=== PATIENT | male | born 1985 | race Two or more races ===

== ENCOUNTER 2019-07-05 20:02 | Emergency (ER) | payer BC ==
[~2019-07-05] VITALS: Ht 170.2 cm; Wt 77.1 kg
--- NOTE | 2019-07-05 20:14 | NUR ---
ED Nurse Note: pt walked in c/o sorethroat x 3 days and earache x 1 day. Pt is AO x 4 times, VSS, on room air no distress. EUGENIED seen Pt at bedside.
[2019-07-05 20:16] VITALS: BP 123/78
--- NOTE | 2019-07-05 20:21 | Emergency Room Report ---
History of Present Illness General Chief Complaint: Sore Throat Source: Patient Present Illness HPI 34-year-old male with no symptom past medical history of 3 days now radiating to ears. Patient is worse than the right. Denies fever and chills, congestion. Complains of minor dry cough without any phlegm production. Denies history of asthma, chest pain, S OB, palpitation, wheezing. Denies nausea vomiting, abdominal pain, urinary symptoms. Denies recent travel and sick contacts. Allergies: Coded Allergies: No Known Allergies (Unverified , 07/05/19) Patient History Past Medical History: see triage record Past Surgical History: unable to obtain Pertinent Family History: none Immunizations: UTD Reviewed Nursing Documentation: PMH: Agreed; PSxH: Agreed Nursing Documentation-PMH Past Medical History: No Stated History Review of Systems All Other Systems: negative except mentioned in HPI Physical Exam Vital Signs Date Time Temp Pulse Resp B/P (MAP) Pulse Ox O2 Delivery O2 Flow Rate FiO2 07/05/19 20:10 99.3 74 18 128/82 (97) 98 Room Air Sp02 EP Interpretation: reviewed, normal General Appearance: no apparent distress, alert, GCS 15, non-toxic Head: normocephalic, atraumatic Eyes: bilateral eye normal inspection, bilateral eye PERRL ENT: no angioedema, TMs + canals normal, pharyngeal erythema, tonsillar exudate Neck: full range of motion, supple/symm/no masses, other - Anterior cervical lymphadenopathy Respiratory: chest non-tender, lungs clear, normal breath sounds, no wheezing, speaking full sentences Cardiovascular #1: regular rate, rhythm, no edema, no murmur, normal capillary refill Gastrointestinal: normal bowel sounds, non tender, soft, non-distended, no guarding, no rebound Musculoskeletal: back normal, gait/station normal, normal range of motion, non- tender Neurologic: alert, oriented x3, responsive, motor strength/tone normal, sensory intact, speech normal Psychiatric: judgement/insight normal, memory normal, mood/affect normal, no suicidal/homicidal ideation Skin: no rash Lymphatic: adenopathy - Anterior cervical Medical Decision Making PA Attestation Diagnosis and treatment plans were reviewed and discussed with my supervising physician Dr. Melendez Diagnostic Impression: Primary Impression: Tonsillitis with exudate ER Course 34-year-old male with no symptom past medical history of 3 days now radiating to ears. Patient is worse than the right. Denies fever and chills, congestion. Complains of minor dry cough without any phlegm production. Denies history of asthma, chest pain, S OB, palpitation, wheezing. Denies nausea vomiting, abdominal pain, urinary symptoms. Denies recent travel and sick contacts. Ddx considered but are not limited to: strep pharyngitis, URI, tonsilitis, peritonsillar absacess, influneza Vital signs: are WNL, pt. is afebrile H&PE are most consistent with: Tonsillitis with white exudate ORDERS: Amoxicillin, ibuprofen ED INTERVENTIONS: Amoxicillin DISCHARGE: At this time pt. is stable for d/c to home. Will provide printed patient care instructions, and any necessary prescriptions. Care plan and follow up instructions have been discussed with the patient prior to discharge. Take medication as directed follow-up with primary care provider worsening symptoms return to the emergency room if bilateral ear pain is secondary to radiating pain from a your tonsillitis Last Vital Signs Date Time Temp Pulse Resp B/P (MAP) Pulse Ox O2 Delivery O2 Flow Rate FiO2 07/05/19 20:16 99.4 77 18 123/78 100 Room Air Disposition: HOME, SELF-CARE Condition: Stable Scripts Ibuprofen* (MOTRIN*) 600 Mg Tablet 600 MG ORAL Q8H PRN for For Pain, #21 TAB 0 Refills Prov: Douglas Alves 07/05/19 Amoxicillin* (AMOXIL*) 500 Mg Capsule 500 MG ORAL EVERY 12 HOURS for 10 Days, #20 CAP Prov: Douglas Alves 07/05/19 Patient Instructions: Strep Throat, Tonsillitis Douglas Alves Jul 05, 2019 20:21
[2019-07-05] MEDS ORDERED: IBUPROFEN600 MG ORAL (20:23)
[2019-07-05] MEDS ORDERED: AMOXICILLIN500 MG ORAL (20:23)
[2019-07-05 20:42] VITALS: BP 123/78
--- NOTE | 2019-07-05 20:42 | NUR ---
ER DISCHARGE NOTE: Patient is cleared to be discharged per ERMD, pt is aox4, on room air, with stable vital signs. pt was given dc and prescription instructions, pt was able to verbalize understanding, pt id band removed without complications. pt is able to ambulate with steady gait. pt took all belongings.
== END 2019-07-05 22:50 | disposition home or self-care (01) ==
LOC: EMR 20:23
DX: J03.90 Acute tonsillitis, unspecified (principal)
CPT/HCPCS: 99282

== ENCOUNTER 2019-07-07 17:04 | Emergency (ER) | payer BC ==
[~2019-07-07] VITALS: Ht 170.2 cm; Wt 74.8 kg
[~2019-07-07 17:04] MED LIST: AMOXICILLIN500 MG ORAL; IBUPROFEN600 MG ORAL
[2019-07-07] MEDS ORDERED: NKM (17:10)
--- NOTE | 2019-07-07 17:13 | NUR ---
ED Nurse Note: PT WALKED IN TO ER TODAY FROM HOME. AOX4. PT C/O WORSENING SORE THROAT, PAIN 08/23. [place] SE[place] [facility] [place] SAME SYMPTOM. PT WAS DISCHARGED WITH RX FOR AMOXICILLIN AND IBUPROFEN AND HAS BEEN COMPLIANT WITH MEDICATIONS BUT STATES SYMPTOMS HAVE BEEN WORSENING. PT STATES NOW HE IS UNABLE TO SPEAK AND HAS MORE PAIN WITH SWALLOWING.
[2019-07-07 17:16] VITALS: BP 126/84
--- NOTE | 2019-07-07 17:27 | Emergency Room Report ---
History of Present Illness General Chief Complaint: Sore Throat Source: Patient Present Illness HPI Patient is a 34-year-old male who presented after increased shortness of his throat. Patient had onset of symptoms several days ago. He had noticed this being somewhat worse. Patient had been noted to have some voice changes. He had not been having any significant cough. He denies any fever. not vomiting or having any diarrhea. Allergies: Coded Allergies: No Known Allergies (Unverified , 07/05/19) Patient History Past Medical History: see triage record Reviewed Nursing Documentation: PMH: Agreed; PSxH: Agreed Nursing Documentation-PMH Past Medical History: No Stated History Review of Systems All Other Systems: negative except mentioned in HPI Physical Exam Vital Signs Date Time Temp Pulse Resp B/P (MAP) Pulse Ox O2 Delivery O2 Flow Rate FiO2 07/07/19 17:07 99.7 93 18 129/88 (102) 96 Room Air General Appearance: well appearing, no apparent distress, alert, GCS 15 Head: normocephalic, atraumatic ENT: hearing grossly normal, other - small ulcers to lip and posterior pharynx , slight uvular swelling Neck: full range of motion, supple Respiratory: lungs clear, no rhonchi, no respiratory distress, speaking full sentences Cardiovascular #1: normal inspection Gastrointestinal: normal inspection Musculoskeletal: normal inspection Neurologic: normal inspection, alert, oriented x3, responsive, ship keeper III-XII nml as tested, normal gait Psychiatric: mood/affect normal Skin: no rash Medical Decision Making Diagnostic Impression: Primary Impression: Herpangina ER Course Patient presented for sore throat. Differential diagnosis included but was not limited to meningitis, exudative tonsillitis, retropharyngeal abscess, epiglottitis, strep pharyngitis. Patient has a benign exam and does not appear to require any imaging or laboratory testing at this time. Patient was given IM steroids due to some inflammation to his uvula. Patient's son was noted to be sick with a similar illness and this does appear to be a viral type illness.Patient was given Mylanta as well as liquid Benadryl and uses for temporary relief of discomfort to mouth ulcers. Patient said he felt better. He was noted to have some improvement in his ability to speak as well as swelling after reassessment. The patient is advised to follow up with primary care doctor in 1-2 days. Patient is advised to return if any worsening condition or if any changes in status that are concerning. This report is dictated with [employer] supervisor dry paste software which may occasionally lead to discrepancies related to use of this software. Last Vital Signs Date Time Temp Pulse Resp B/P (MAP) Pulse Ox O2 Delivery O2 Flow Rate FiO2 07/07/19 17:16 99.5 88 17 126/84 99 Room Air Status: improved Disposition: HOME, SELF-CARE Condition: Stable Scripts Diphenhydramine Hcl* (BENADRYL ALLERGY*) 12.5 Mg/5 Ml Liquid 25 MG ORAL Q6H PRN for Itching, #120 ML 0 Refills Prov: Mukund Bah MD 07/07/19 Mukund Bah MD Jul 07, 2019 17:27
[2019-07-07] MEDS ORDERED: DiphenhydrAMINE 25mg/10ml Elixir ORAL ONE (17:30)
[2019-07-07] MEDS ORDERED: Dexamethasone 4mg/ml vial IM ONE (17:30)
[2019-07-07] MEDS ORDERED: BENADRYL A12.5 MG/5 ORAL (18:20)
--- NOTE | 2019-07-07 18:23 | NUR ---
ED Nurse Note: PT LAYING PEACEFULLY IN BED IN NAD. AOX4. PRESCRIPTION AND DISCHARGE PAPERWORK EXPLAINED TO PT. PT VERBALIZES UNDERSTANDING AND ALL QUESTIONS ANSWERED. PRESCRIPTION AND DISCHARGE PAPERWORK GIVEN TO PT AND ID WRISTBAND REMOVED. PT WALKED OUT OF ER WITH STEADY GAIT AND ALL BELONGINGS.
[2019-07-07 18:25] VITALS: BP 122/80
== END 2019-07-07 18:25 | disposition home or self-care (01) ==
LOC: EMR 17:35
DX: B08.5 Enteroviral vesicular pharyngitis (principal)
CPT/HCPCS: 96372; 99283; J1100